=== PATIENT | male | born 1955 | race Caucasian/White ===

== ENCOUNTER 2022-06-16 15:26 | Outpatient (CLI) | payer MEDICARE, OTHER ==
--- NOTE | 2022-06-16 17:22 | Ultrasound Report ---
PROCEDURE: Aorta Screening INDICATIONS: HIST OF SMOKING TECHNIQUE: Real time scanning was performed of the aorta and iliac arteries, with image documentatio n. COMPARISON: None FINDINGS: Aorta: Proximal aortic diameter measures 3.0 cm. Mid-aorta measures 2.0 cm. Distal aortic diameter is 1.6 cm. Iliac arteries: Right common iliac artery measures 1.4 cm. Left common iliac artery measures 1.5 cm . 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 One year sonographic follow-up [email or web address] Reviewed by: Callie Hernandez MD on 06/16/2022 5:21 PM PST Approved by: Callie Hernandez MD on 06/16/2022 5:21 PM PST Station ID: [id number]
== END 2022-06-16 15:27 | disposition home or self-care (01) ==
LOC: DI 15:26
PROVIDERS: ATTEND Nurse Practitioner Family
DX: Z13.6 Encounter for screening for cardiovascular disorders (principal); I71.40 Abdominal aortic aneurysm, without rupture, unspecified; Z87.891 Personal history of nicotine dependence

== ENCOUNTER 2023-01-23 09:32 | Outpatient (CLI) | payer MEDICARE, OTHER ==
--- NOTE | 2023-01-23 16:46 | XRAY Report ---
PROCEDURE: Shoulder 3 View LT INDICATIONS: ROTATOR CUFF SYNDROME,LEFT TECHNIQUE: 3 views of the shoulder were acquired. COMPARISON: None. FINDINGS: Bones: No fractures or dislocations. No suspicious bony lesions. Visualized ribs appear intact. Moderate to severe acromioclavicular degenerative narrowing with prominent humeral spur. Subchondral sclerosis is present. Soft tissues: No suspicious soft tissue calcifications. 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 Reviewed by: Shira Zelaya MD on 01/23/2023 4:45 PM PDT Approved by: Shira Zelaya MD on 01/23/2023 4:45 PM PDT Station ID: [id number]
== END 2023-01-23 09:33 | disposition home or self-care (01) ==
LOC: DI.S 09:32
PROVIDERS: ATTEND Internal Medicine
DX: M75.102 Unspecified rotator cuff tear or rupture of left shoulder, not specified as traumatic (principal); M19.012 Primary osteoarthritis, left shoulder